=== PATIENT | female | born 1975 | race Two or more races ===

== ENCOUNTER 2024-11-26 22:35 | Emergency (ER) | payer OTHER ==
[~2024-11-26] VITALS: Ht 162.6 cm; Wt 70.3 kg
[2024-11-27 00:50] LABS: PLATELET COUNT (AUTO) 90 K/uL (150-450); RED BLOOD CELL COUNT(AUTO) 4.02 MIL/uL (4.0-5.2); RED CELL DISTRIBUTION WIDTH 13.9 % (11.5-15.0); WHITE BLOOD COUNT (AUTO) 10.8 K/uL (4.3-11.0)
[2024-11-27 00:52] LABS: CREATININE 0.6 mg/dL (0.6-1.3); SODIUM SERUM 141.0 mmol/L (136-145); UREA NITROGEN, BLOOD 16.0 mg/dL (7-18)
[2024-11-27 00:55] LABS: ASPARTATE AMINOTRANSFERASE 20.0 U/L (15-37); TOTAL PROTEIN, SERUM 6.9 g/dL (6.4-8.2)
[2024-11-27 00:58] LABS: APPEARANCE,URINE CLEAR (CLEAR); BLOOD, URINE NEGATIVE Ery/uL (NEGATIVE); LEUKOCYTE ESTERASE ,URINE NEGATIVE (NEGATIVE); NITRITE, URINE NEGATIVE (NEGATIVE); UGLUCOSE NEGATIVE (NEGATIVE)
[2024-11-27 00:58] LABS: CALCIUM, SERUM 9.3 mg/dL (8.5-10.1)
[2024-11-27 01:41] LABS: LYMPHOCYTES % (MANUAL) 16 % (16-48); MONOCYTES % (MANUAL) 2 % (0-11.0); NEUTROPHILS % (MANUAL) 82 (42-76); PLATELET ESTIMATE DECREASED
[2024-11-27 01:47] VITALS: BP 122/80; TEMP 98.6; O2SAT 97
== END 2024-11-27 01:47 | disposition home or self-care (01) ==
LOC: ER 22:35
DX: K52.9 Noninfective gastroenteritis and colitis, unspecified (principal); E78.5 Hyperlipidemia, unspecified; I10 Essential (primary) hypertension; R11.2 Nausea with vomiting, unspecified
CPT/HCPCS: 36415; 80053-TC; 83690-TC; 84484-TC; 85027-TC